=== PATIENT | male | born 2000 | race Caucasian/White ===

== ENCOUNTER 2022-02-18 23:25 | Emergency (ER) | payer SELFPAY ==
[~2022-02-18] VITALS: Ht 177.8 cm; Wt 90.9 kg
[2022-02-19 00:11] VITALS: BP 120/72
== END 2022-02-19 00:25 | disposition home or self-care (01) | DRG 605 ==
LOC: ED 23:25
PROC: 0HQGXZZ Repair Left Hand Skin, External Approach (ICD-10-PCS; principal; 2022-02-18)
DX: S61.211A Laceration without foreign body of left index finger without damage to nail, initial encounter (principal); W27.0XXA Contact with workbench tool, initial encounter; Y92.009 Unspecified place in unspecified non-institutional (private) residence as the place of occurrence of the external cause